=== PATIENT | female | born 1975 | race African-American/Black ===

== ENCOUNTER 2018-07-23 15:29 | Emergency (ER) | payer OTHER ==
--- NOTE | 2018-07-23 16:15 | ED ---
General Adult HPI - General Chief complaint: Back Pain/Injury Stated complaint: Abd pain Source: patient, RN notes reviewed Mode of arrival: ambulatory Limitations: no limitations - History of Present Illness Initial comments: Chief complaint and history of present illness is a 41-year-old female complaint of right lower rib cage area pain. Ongoing for 3 or 4 days. She can' t remember any specific injury. Though she does states she's exercising more lately. No coughing. Denies any fever. No associated sweats. It is reproducible with palpation over the area as well as twisting turning and bending. She has not taken any pain medication for it to-date. - Related Data Home Medications Medication Instructions Recorded Confirmed Ferrous Sulfate [Iron (65 MG 325 mg PO DAILY 12/17/15 07/23/18 Elemental)] Varenicline Tartrate [Chantix] 1 tab PO DAILY 12/17/15 07/23/18 Allergies Allergy/AdvReac Type Severity Reaction Status Date / Time latex Allergy Rash/Hives Verified 07/23/18 15:57 Review of Systems ROS Statement: Those systems with pertinent positive or pertinent negative responses have been documented in the HPI. Review of systems no complaint of head ache no backache currently though she does have chronic back problems. Denies shortness of breath. No change in appetite. No GI/ complaints or problems. No rashes. All systems were reviewed. Past medical problems anemia for which she takes iron tablets. Surgeries none. Family history an aunt and sister had lung cancer. Patient has ALLERGIES to latex. She quit smoking one year ago. She denies alcohol use. ROS Other: All systems not noted in ROS Statement are negative. Past Medical History Past Medical History: No Reported History History of Any Multi-Drug Resistant Organisms: None Reported Past Surgical History: No Surgical Hx Reported Past Anesthesia/Blood Transfusion Reactions: No Reported Reaction Past Psychological History: No Psychological Hx Reported Smoking Status: Current every day smoker - Past Family History Mother Family Medical History: Asthma, Diabetes Mellitus, Hypertension General Exam - General Exam Comments Initial Comments: General: The patient is awake and alert, here with a complaint of discomfort for 3 days to her right lower lateral rib cage area. Vital signs shows temperature 97.9 pulse 87 respiratory rate 16 pulse ox 99% room air blood pressure 130/83 Eye: Pupils are equal, round and reactive to light, extra-ocular movements are intact ; there is normal conjunctiva bilaterally. No signs of icterus. Ears, nose, mouth and throat: There are moist mucous membranes and no oral lesions. Neck: The neck is supple, there is no tenderness, no anterior cervical lymphadenopathy , thyroid not enlarged. No difficulty swallowing. Cardiovascular: There is a regular rate and rhythm. No murmur, rub or gallop is appreciated. Respiratory: Lungs are clear to auscultation, respirations are non-labored, breath sounds are equal. No wheezes, stridor, rales, or rhonchi. Patient points of discomfort to the lower rib cage on the right side along the mid axillary line. Pain increases with deep palpation twisting turning bending but not with breathing. No rash noted. Early shingles was discussed. Gastrointestinal: Soft, non-distended, non-tender abdomen without masses or organomegaly noted. There is no rebound or guarding present. No CVA tenderness. Bowel sounds are unremarkable. Back: There is no tenderness to palpation in the midline. There is no obvious deformity. No rashes noted. Musculoskeletal: Normal ROM, no tenderness, There is no pedal edema. There is no calf tenderness or swelling. Sensation intact. Neurological: No complaint of any dizziness no neuro deficits noted. Skin: Skin is warm and dry and no rashes or lesions are noted. Early shingles discussed. Psychiatric: Cooperative, Limitations: no limitations Course Vital Signs 07/23/18 15:33 Temperature 97.9 F Pulse Rate 87 Respiratory 16 Rate Blood Pressure 130/83 O2 Sat by Pulse 99 Oximetry Medical Decision Making - Medical Decision Making Medical decision making; is a 43-year-old female complaint of discomfort to her right lower lateral rib cage area. Reproducible. She does states she's had increased physical activity been doing exercising. Remember any specific reason for the pain. Patient had a chest x-ray and urinalysis done. She has no other complaints. The patient's urine was done and lab reports no signs of infection. X-ray of the chest was done reviewed radiologist his impression is heart and mediastinum are normal. Lungs are clear. Diaphragm is normal. Bony thorax appears normal. Impression normal chest. As read by Dr. Linares. The patient does have chronic back pain and uses Motrin with good results. We discussed nondisplaced rib fractures, musculoskeletal strain, costochondritis. Patient does not have fever. Pains radiate reproducible. The plan the patient will be advised to continue with her Motrin at home follow up with family doctor. Splint the area when she coughs or takes a deep breath. She develops a fever and return emergency room or see her family doctor. - Lab Data Lab Results 07/23/18 Range/Units 16:15 Urine Color Colorless Urine Appearance Clear (Clear) Urine pH 6.5 (5.0-8.0) Ur Specific [place] 1.002 (1.001-1.035) Urine Protein Negative (Negative) Urine Glucose (UA) Negative (Negative) Urine Ketones Negative (Negative) Urine Blood Negative (Negative) Urine Nitrite Negative (Negative) Urine Bilirubin Negative (Negative) Urine Urobilinogen <2.0 (<2.0) mg/dL Ur Leukocyte Esterase Negative (Negative) Disposition Clinical Impression: Costochondritis, acute Disposition: HOME SELF-CARE Condition: Fair Instructions: Costochondritis (ED) Additional Instructions: Which her hand or pillow over the area of discomfort we did deep breath or cough or twist or turn. Use your ibuprofen which you have at home. Follow-up family doctor. Return emergency room if he have any acute changes. Watch for rash. If he see a rash to notify your family doctor. Is patient prescribed a controlled substance at d/c from ED?: No Referrals: Star Tai MD [Primary Care Provider] - 1-2 days Time of Disposition: 17:22
[2018-07-23 16:32] LABS: Appearance,Urine Clear (Clear); Bilirubin,Urine Negative (Negative); Blood,Urine Negative (Negative); Color,Urine Colorless; Glucose,Urine (UA) Negative (Negative); Ketones,Urine Negative (Negative); Leukocyte Esterase,Urine Negative (Negative); Nitrite,Urine Negative (Negative); PH, Urine 6.5 (5.0-8.0); Protein,Urine Negative (Negative); Specific Gravity,Urine 1.002 (1.001-1.035); Urobilinogen,Urine <2.0 mg/dL (<2.0)
--- NOTE | 2018-07-23 16:54 | XR ---
EXAMINATION TYPE: XR chest 2V DATE OF EXAM: 07/23/2018 COMPARISON: None HISTORY: Rib pain TECHNIQUE: Frontal and lateral views of the chest are obtained. FINDINGS: Heart and mediastinum are normal. Lungs are clear. Diaphragm is normal. Bony thorax appear s normal. IMPRESSION: Normal chest.
[2018-07-23 17:33] VITALS: BP 113/80; PULSE 88; RESP 18; TEMP 98.2
== END 2018-07-23 17:33 | disposition home or self-care (01) ==
LOC: EC 15:29
DX: M94.0 Chondrocostal junction syndrome [Tietze] (principal); M54.9 Dorsalgia, unspecified; R10.9 Unspecified abdominal pain; F17.200 Nicotine dependence, unspecified, uncomplicated; Z79.899 Other long term (current) drug therapy; Z91.040 Latex allergy status
CPT/HCPCS: 71046; 81003; 99283

== ENCOUNTER 2018-10-09 13:49 | Emergency (ER) | payer OTHER ==
[2018-10-09 13:56] VITALS: RESP 18; TEMP 99.8
[2018-10-09] MEDS ORDERED: HYDROcodone/APAP 7.5-325MG 1 EACH TAB PO ONE (14:08)
[2018-10-09] MEDS ORDERED: SODIUM CHLORIDE 0.9% 1,000 ML IV STA (14:08)
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
--- NOTE | 2018-10-09 14:51 | XR ---
EXAMINATION TYPE: XR ankle complete RT DATE OF EXAM: 10/09/2018 Right ankle 3 views. History pain. Comparison none. FINDINGS: Ankle mortise is anatomic. I see no fracture nor dislocation. Joint spaces are normal. There are no p athologic calcifications. IMPRESSION: Negative right ankle exam.
[2018-10-09 15:06] LABS: Basophils % (A) 1 %; Eosinophils # (A) 0.2 k/uL (0-0.7); Eosinophils % (A) 5 %; HCT 38.8 % (34.0-46.0); HGB 12.6 gm/dL (11.4-16.0); Lymphocytes # (A) 1.4 k/uL (1.0-4.8); Lymphocytes % (A) 40 %; MCHC 32.6 g/dL (31.0-37.0); MCV 95.2 fL (80.0-100.0); Mean Platelet Volume 7.2; Monocytes # (A) 0.3 k/uL (0-1.0); Monocytes % (A) 9 %; Neutrophils # (A) 1.4 k/uL (1.3-7.7); Neutrophils % (A) 42 %; Platelet Count 230 k/uL (150-450); RBC 4.07 m/uL (3.80-5.40); RDW 13.7 % (11.5-15.5); WBC 3.4 k/uL (3.8-10.6)
[2018-10-09 15:12] VITALS: BP 121/86; PULSE 75
[2018-10-09 15:16] LABS: ALT 33 U/L (9-52); AST 34 U/L (14-36); Alkaline Phosphatase 67 U/L (38-126); Anion Gap 8 mmol/L; Blood Urea Nitrogen 11 mg/dL (7-17); Calcium 9.4 mg/dL (8.4-10.2); Carbon Dioxide 24 mmol/L (22-30); Chloride 106 mmol/L (98-107); Glucose 104 mg/dL (74-99); Potassium 4.4 mmol/L (3.5-5.1); Sodium 138 mmol/L (137-145); Total Bilirubin 0.8 mg/dL (0.2-1.3)
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
[2018-10-09 15:45] LABS: Appearance,Urine Clear (Clear); Bilirubin,Urine Negative (Negative); Blood,Urine Negative (Negative); Color,Urine Colorless; Glucose,Urine (UA) Negative (Negative); Ketones,Urine Negative (Negative); Leukocyte Esterase,Urine Negative (Negative); Nitrite,Urine Negative (Negative); Protein,Urine Negative (Negative); Specific Gravity,Urine 1.015 (1.001-1.035); Urobilinogen,Urine <2.0 mg/dL (<2.0)
== END 2018-10-09 16:01 | disposition home or self-care (01) ==
LOC: EC 13:49
DX: S93.401A Sprain of unspecified ligament of right ankle, initial encounter (principal); R10.9 Unspecified abdominal pain; F17.200 Nicotine dependence, unspecified, uncomplicated; Z79.899 Other long term (current) drug therapy; Z91.040 Latex allergy status; V03.99XA Pedestrian with other conveyance injured in collision with car, pick-up truck or van, unspecified whether traffic or nontraffic accident, initial encounter; Y93.01 Activity, walking, marching and hiking; Y92.481 Parking lot as the place of occurrence of the external cause; Z98.51 Tubal ligation status
CPT/HCPCS: 36415; 80053; 85025; 81003; 73610; 71260; 74177; 99285; 96360; Q9967

== ENCOUNTER → 2023-01-07 | Outpatient (CLI) | payer OTHER ==
--- NOTE | 2023-01-08 08:37 | MM ---
Reason for Exam: Screening (asymptomatic). Baseline mammogram. Patient History: Menarche at age 14. First Full-Term at age 16. Last menstrual period: 12/21/2022 Risk Values: [place] 5 year model risk: 0.9%. NCI Lifetime model risk: 9.2%. Prior Study Comparison: Patient's first Mammogram. Tissue Density: The breast tissue is heterogeneously dense. This may lower the sensitivity of mammography. Findings: Analyzed By CAD. There is no suspicious group of microcalcifications or new suspicious mass in either breast. Overall Assessment: Negative, BI-RAD 1 Management: Screening Mammogram of both breasts in 1 year. . Patient should continue monthly self-breast exams. A clinical breast exam by your physician is recommended on an annual basis. This exam should not preclude additional follow-up of suspicious palpable abnormalities. Note on Juana scores and lifetime risk: 1. A Juana score greater than 3% is considered moderate risk. If this is the case, consider specialist referral to assess eligibility for a risk reducing agent. 2. If overall lifetime risk for the development of breast cancer is 20% or higher, the patient may qualify for future screening with alternating mammogram and breast MRI. Electronically signed and approved by: Suleman Tompkins M.D. Radiologis
== END | disposition home or self-care (01) ==
LOC: RADMAMWWP 15:51
PROVIDERS: ATTEND Family Medicine
DX: Z12.31 Encounter for screening mammogram for malignant neoplasm of breast (principal)
CPT/HCPCS: 77067

== ENCOUNTER 2023-06-26 14:59 | Emergency (ER) | payer OTHER ==
[2023-06-26 15:21] VITALS: TEMP 98.4
[2023-06-26] MEDS ORDERED: ONDANSETRON 4 MG/2 ML VIAL IVP STA (16:02)
[2023-06-26] MEDS ORDERED: SODIUM CHLORIDE 0.9% 1,000 ML IV STA (16:02)
[2023-06-26] MEDS ORDERED: KETOROLAC 15 MG/ML 1 ML VIAL IVP STA (16:02)
[2023-06-26] MEDS ORDERED: PANTOPRAZOLE 40 MG/10 ML VIAL IVP STA (16:02)
[2023-06-26] MEDS ORDERED: MAG HYDROX/AL HYDROX/SIMETH 30 ML, HYOSCYAMINE ELIXIR 10 ML, LIDOCAINE VISCOUS 2% 10 ML PO STA ×3 (16:03)
[2023-06-26 16:45] LABS: Basophils % (A) 1 %; Eosinophils # (A) 0.1 k/uL (0-0.7); Eosinophils % (A) 3 %; HCT 37.4 % (34.0-46.0); HGB 12.1 gm/dL (11.4-16.0); Lymphocytes # (A) 1.2 k/uL (1.0-4.8); Lymphocytes % (A) 35 %; MCH 30.9 pg (25.0-35.0); MCHC 32.2 g/dL (31.0-37.0); MCV 95.9 fL (80.0-100.0); Mean Platelet Volume 8.4; Monocytes # (A) 0.3 k/uL (0-1.0); Monocytes % (A) 9 %; Neutrophils # (A) 1.7 k/uL (1.3-7.7); Neutrophils % (A) 50 %; Platelet Count 234 k/uL (150-450); RBC 3.91 m/uL (3.80-5.40); RDW 13.5 % (11.5-15.5); WBC 3.4 k/uL (3.8-10.6)
[2023-06-26 16:48] LABS: Appearance,Urine Clear (Clear); Bilirubin,Urine Negative (Negative); Blood,Urine Moderate (Negative); Color,Urine Colorless; Glucose,Urine (UA) Negative (Negative); Ketones,Urine Negative (Negative); Leukocyte Esterase,Urine Negative (Negative); Nitrite,Urine Negative (Negative); Protein,Urine Negative (Negative); RBC,Urine 6 /hpf (0-5); Specific Gravity,Urine 1.007 (1.001-1.035); Squamous Epithelial Cell,Urine <1 /hpf (0-4); Urobilinogen,Urine <2.0 mg/dL (<2.0); WBC,Urine 2 /hpf (0-5)
[2023-06-26 16:54] LABS: Partial Thromboplastin Time 27.3 sec (22.0-30.0); Prothrombin Time 10.8 sec (10.0-12.5)
[2023-06-26 17:02] LABS: ALT 17 U/L (4-34); AST 21 U/L (14-36); African American GFR (CKD) >90 (>60 ml/min/1.73 sqM); Albumin 3.6 g/dL (3.5-5.0); Alkaline Phosphatase 76 U/L (38-126); Amylase 63 U/L (30-110); Anion Gap 7 mmol/L; Blood Urea Nitrogen 10 mg/dL (7-17); Calcium 8.9 mg/dL (8.4-10.2); Carbon Dioxide 25 mmol/L (22-30); Chloride 105 mmol/L (98-107); Glucose 87 mg/dL (74-99); Lipase 126 U/L (23-300); Non-African American GFR(CKD) >90 (>60 ml/min/1.73 sqM); Potassium 4.2 mmol/L (3.5-5.1); Sodium 137 mmol/L (137-145); Total Bilirubin 0.5 mg/dL (0.2-1.3); Total Protein 6.9 g/dL (6.3-8.2)
--- NOTE | 2023-06-26 17:21 | ED ---
General Adult HPI - General Chief complaint: Nausea/Vomiting/Diarrhea Stated complaint: abd pain Time Seen by Provider: 06/26/23 15:50 Source: patient, RN notes reviewed, old records reviewed Mode of arrival: ambulatory Limitations: no limitations - History of Present Illness Initial comments: Patient is a 48-year-old female presents emergency Department complaining of epigastric and right upper quadrant abdominal pain since yesterday. This evening nausea as well as a few episodes of nonbilious emesis. He is improved today but is still having symptoms which is why she percents. States she started feeling bad after she drank coffee with suspected bad creamer. He was concerned that explained. Patient does have a history of hypertension but is poorly compliant with medications. His history of tubal ligation but no other abdominal surgeries. Denies any diarrhea, constipation. Denies any chest pain or shortness breath. No cardiac winces time. Presents for further evaluation of this time. - Related Data Home Medications Medication Instructions Recorded Confirmed Ferrous Sulfate [Iron (65 MG 325 mg PO DAILY 12/17/15 07/23/18 Elemental)] Varenicline Tartrate [Chantix] 1 tab PO DAILY 12/17/15 07/23/18 Previous Rx's Medication Instructions Recorded Ibuprofen [Motrin] 600 mg PO Q6HR PRN #40 day 10/09/18 Fluconazole [Diflucan] 150 mg PO DAILY #5 tab 09/25/22 Nystatin 100,000Unit/gm Cream 1 applic TOPICAL TID #45 gm 09/25/22 [Mycostatin Cream] metroNIDAZOLE 500 mg PO BID 7 Days #14 tablet 09/25/22 Famotidine [Pepcid] 20 mg PO DAILY 7 Days #7 tablet 06/26/23 Allergies Allergy/AdvReac Type Severity Reaction Status Date / Time latex Allergy Rash/Hives Verified 06/26/23 15:12 Review of Systems ROS Statement: Those systems with pertinent positive or pertinent negative responses have been documented in the HPI. Review of Systems: CONST: Denies fever EYES: Denies blurry vision ENT: Denies nasal congestion C/V: Denies Chest pain RESP: Denies shortness of breath GI: Endorses abdominal pain : Denies dysuria SKIN: Denies rash. MSK: Denies joint pain. NEURO: Denies headache ROS Other: All systems not noted in ROS Statement are negative. Past Medical History Past Medical History: No Reported History History of Any Multi-Drug Resistant Organisms: None Reported Past Surgical History: No Surgical Hx Reported, Tubal Ligation Past Anesthesia/Blood Transfusion Reactions: No Reported Reaction Past Psychological History: No Psychological Hx Reported Smoking Status: Current every day smoker Past Alcohol Use History: Occasional Past Drug Use History: None Reported - Past Family History Mother Family Medical History: Asthma, Diabetes Mellitus, Hypertension General Exam - General Exam Comments Initial Comments: General: Appears in no acute distress. HEAD: Normal with no signs of head trauma. EYES: PERRLA, EOMI, conjunctiva normal, no discharge. ENT: Hearing grossly intact, normal oropharynx. RESPIRATORY: Clear breath sounds bilaterally. No wheezes, rales, or rhonchi. C/V: Regular rate and rhythm. S1 and S2 auscultated, no edema, peripheral pulses 2+ and intact throughout ABD: Abdomen soft, nondistended. Mild tenderness palpation in the right upper q uadrant and epigastric region. No guarding. No peritoneal signs. EXT: Normal range of motion, no obvious deformity SKIN: No rashes or lesions observed on exposed skin. NEURO: Alert and oriented 4. Limitations: no limitations Course Vital Signs 06/26/23 06/26/23 15:10 18:42 Temperature 98.4 F Pulse Rate 69 64 Respiratory 20 18 Rate Blood Pressure 141/102 145/98 O2 Sat by Pulse 100 100 Oximetry Medical Decision Making - Medical Decision Making Was pt. sent in by a medical professional or institution (, PA, GROUP MANAGER, urgent care, hospital, or usp...) When possible be specific @ -No Did you speak to anyone other than the patient for history (EMS, parent, family, police, friend...)? What history was obtained from this source @ -No Did you review nursing and triage notes (agree or disagree)? Why? @ -I reviewed and agree with nursing and triage notes Were old charts reviewed (outside hosp., previous admission, EMS record, old EKG, old radiological studies, urgent care reports/EKG's, usp records)? Report findings @ -No old charts were reviewed Differential Diagnosis (chest pain, altered mental status, abdominal pain women, abdominal pain men, vaginal bleeding, weakness, fever, dyspnea, syncope, headache, dizziness, GI bleed, back pain, seizure, CVA, palpatations, mental health, musculoskeletal)? @ -Differential Abdominal Pain Women: Appendicitis, Cholecystitis, diverticulosis, ischemic bowel, pancreatitis, hepatitis, UTI, gastroenteritis, AAA, incarcerated hernia, bowel obstruction, constipation, inflammatory bowel, hepatitis, peptic ulcer disease, splenic infarction, perforated viscus, vulvitis, ovarian torsion, PID, kidney stone, placenta abruption, this is not meant to be an all-inclusive list EKG interpreted by me (3pts min.). @ -As above X-rays interpreted by me (1pt min.). @ -None done CT interpreted by me (1pt min.). @ -None done U/S interpreted by me (1pt. min.). @ -Ultrasound reveals cholelithiasis without any obvious findings to suggest cholecystitis. Radiology states that this could be early cholecystitis as there are no findings of that at this time. No gallbladder wall thickening. No CBD dilation. No pericholecystic fluid. No sonographic Vera sign. What testing was considered but not performed or refused? (CT, X-rays, U/S, labs)? Why? @ -None What meds were considered but not given or refused? Why? @ -None Did you discuss the management of the patient with other professionals (professionals i.e. , PA, GROUP MANAGER, lab, RT, psych nurse, social scientist, leasing specialist, teacher, chief contract officer, mattress spring encaser)? Give summary @ -No Was smoking cessation discussed for >3mins.? @ -No Was critical care preformed (if so, how long)? @ -No Were there social determinants of health that impacted care today? How? (Homelessness, low income, unemployed, alcoholism, drug addiction, transportation, low edu. Level, literacy, decrease access to med. care, skilled nursing, rehab)? @ -No Was there de-escalation of care discussed even if they declined (Discuss DNR or withdrawal of care, Hospice)? DNR status @ -No What co-morbidities impacted this encounter? (DM, HTN, Smoking, COPD, CAD, Cancer, CVA, ARF, Chemo, Hep., AIDS, mental health diagnosis, sleep apnea, morbid obesity)? @ -None Was patient admitted / discharged? Hospital course, mention meds given and route, prescriptions, significant lab abnormalities, going to OR and other pertinent info. @ -Based on the patient's presentation and physical exam, I'm concerned for intra-abdominal process for the patient's current symptoms. Hepatobiliary etiologies I'm listed in the that the symptoms as well as area of pain. We will obtain abdominal laboratory studies as well as a gallbladder ultrasound. Screen EKG will also be obtained. Patient was in agreement this plan. She will be empirically treated with IV fluids, Toradol, Zofran, Protonix as well as a GI cocktail. Vital signs are within acceptable limits. EKG shows no signs of acute ischemic process.Ultrasound reveals no evidence of cholecystitis. Patient does have cholelithiasis. Patient's laboratory studies are all within acceptable limits including a negative Covid. On reevaluation, symptoms have resolved. She is able to tolerate oral intake. Discussed results. Likely experiencing biliary colic. She expresses understanding that she does have a gallstone. Strict return precautions discussed but she'll be discharged home at this time. She was in agreement this plan. Discussed proper diet. I will provide the patient with a prescription for Pepcid, ODT Zofran. I instructed the patient to follow up with their PCP in the next 1-3 days. I explained that the patient should return to the emergency department if they experience any worsening symptoms. Strict return precautions were discussed with the patient. The patient expressed understanding of these instructions. I answered all questions that the patient had. The patient was discharged home in good condition with their prescriptions and follow up information. Undiagnosed new problem with uncertain prognosis? @ -No Drug Therapy requiring intensive monitoring for toxicity (Heparin, Nitro, Insulin, Cardizem)? @ -No Were any procedures done? @ -No Diagnosis/symptom? @ -Cholelithiasis, biliary colic Acute, or Chronic, or Acute on Chronic? @ -Acute Uncomplicated (without systemic symptoms) or Complicated (systemic symptoms)? @ -Complicated Side effects of treatment? @ -none Exacerbation, Progression, or Severe Exacerbation] @ -no Poses a threat to life or bodily function? @ -Unlikely - Lab Data Result diagrams: 06/26/23 16:13 06/26/23 16:13 Lab Results 06/26/23 06/26/23 06/26/23 Range/Units 16:13 16:13 16:13 WBC 3.4 L (3.8-10.6) k/uL RBC 3.91 (3.80-5.40) m/uL Hgb 12.1 (11.4-16.0) gm/dL Hct 37.4 (34.0-46.0) % MCV 95.9 (80.0-100.0) fL MCH 30.9 (25.0-35.0) pg MCHC 32.2 (31.0-37.0) g/dL RDW 13.5 (11.5-15.5) % Plt Count 234 (150-450) k/uL MPV 8.4 Neutrophils % 50 % Lymphocytes % 35 % Monocytes % 9 % Eosinophils % 3 % Basophils % 1 % Neutrophils # 1.7 (1.3-7.7) k/uL Lymphocytes # 1.2 (1.0-4.8) k/uL Monocytes # 0.3 (0-1.0) k/uL Eosinophils # 0.1 (0-0.7) k/uL Basophils # 0.0 (0-0.2) k/uL PT 10.8 (10.0-12.5) sec INR 1.0 (<1.2) APTT 27.3 (22.0-30.0) sec Sodium (137-145) mmol/L Potassium (3.5-5.1) mmol/L Chloride (98-107) mmol/L Carbon Dioxide (22-30) mmol/L Anion Gap mmol/L BUN (7-17) mg/dL Creatinine (0.52-1.04) mg/dL Est GFR (CKD-EPI)AfAm (>60 ml/min/1.73 sqM) Est GFR (CKD-EPI)NonAf (>60 ml/min/1.73 sqM) Glucose (74-99) mg/dL Plasma Lactic Acid Chris (0.7-2.0) mmol/L Calcium (8.4-10.2) mg/dL Total Bilirubin (0.2-1.3) mg/dL AST (14-36) U/L ALT (4-34) U/L Alkaline Phosphatase (38-126) U/L Total Protein (6.3-8.2) g/dL Albumin (3.5-5.0) g/dL Amylase (30-110) U/L Lipase (23-300) U/L HCG, Qual Urine Color Colorless Urine Appearance Clear (Clear) Urine pH 7.0 (5.0-8.0) Ur Specific [place] 1.007 (1.001-1.035) Urine Protein Negative (Negative) Urine Glucose (UA) Negative (Negative) Urine Ketones Negative (Negative) Urine Blood Moderate H (Negative) Urine Nitrite Negative (Negative) Urine Bilirubin Negative (Negative) Urine Urobilinogen <2.0 (<2.0) mg/dL Ur Leukocyte Esterase Negative (Negative) Urine RBC 6 H (0-5) /hpf Urine WBC 2 (0-5) /hpf Ur Squamous Epith Cells <1 (0-4) /hpf SARS-CoV-2 (PCR) (Not Detectd) 06/26/23 06/26/23 06/26/23 Range/Units 16:13 16:13 17:24 WBC (3.8-10.6) k/uL RBC (3.80-5.40) m/uL Hgb (11.4-16.0) gm/dL Hct (34.0-46.0) % MCV (80.0-100.0) fL MCH (25.0-35.0) pg MCHC (31.0-37.0) g/dL RDW (11.5-15.5) % Plt Count (150-450) k/uL MPV Neutrophils % % Lymphocytes % % Monocytes % % Eosinophils % % Basophils % % Neutrophils # (1.3-7.7) k/uL Lymphocytes # (1.0-4.8) k/uL Monocytes # (0-1.0) k/uL Eosinophils # (0-0.7) k/uL Basophils # (0-0.2) k/uL PT (10.0-12.5) sec INR (<1.2) APTT (22.0-30.0) sec Sodium 137 (137-145) mmol/L Potassium 4.2 (3.5-5.1) mmol/L Chloride 105 (98-107) mmol/L Carbon Dioxide 25 (22-30) mmol/L Anion Gap 7 mmol/L BUN 10 (7-17) mg/dL Creatinine 0.76 (0.52-1.04) mg/dL Est GFR (CKD-EPI)AfAm >90 (>60 ml/min/1.73 sqM) Est GFR (CKD-EPI)NonAf >90 (>60 ml/min/1.73 sqM) Glucose 87 (74-99) mg/dL Plasma Lactic Acid Chris 0.7 (0.7-2.0) mmol/L Calcium 8.9 (8.4-10.2) mg/dL Total Bilirubin 0.5 (0.2-1.3) mg/dL AST 21 (14-36) U/L ALT 17 (4-34) U/L Alkaline Phosphatase 76 (38-126) U/L Total Protein 6.9 (6.3-8.2) g/dL Albumin 3.6 (3.5-5.0) g/dL Amylase 63 (30-110) U/L Lipase 126 (23-300) U/L HCG, Qual Not Detected Urine Color Urine Appearance (Clear) Urine pH (5.0-8.0) Ur Specific [place] (1.001-1.035) Urine Protein (Negative) Urine Glucose (UA) (Negative) Urine Ketones (Negative) Urine Blood (Negative) Urine Nitrite (Negative) Urine Bilirubin (Negative) Urine Urobilinogen (<2.0) mg/dL Ur Leukocyte Esterase (Negative) Urine RBC (0-5) /hpf Urine WBC (0-5) /hpf Ur Squamous Epith Cells (0-4) /hpf SARS-CoV-2 (PCR) Not Detected (Not Detectd) - EKG Data -: EKG Interpreted by Me EKG Comments: 12-lead Electrocardiogram Interpretation Note EKG was reviewed and interpreted by myself. 12-lead ECG performed at 1639 is interpreted by me as revealing sinus bradycardia with first-degree AV block at a rate of at 54 beats per minute. Left axis deviation. AR interval is 252 ms, QRS duration is 108 ms, QTc is 443 ms.. There were no ST or T wave abnormalit ies to suggest myocardial ischemia or injury. R wave progression across the precordium was satisfactory. By my interpretation this EKG is non-diagnostic for acute ischemia. Disposition Clinical Impression: Biliary colic, Cholelithiasis Disposition: HOME SELF-CARE Condition: Good Instructions (If sedation given, give patient instructions): Biliary Colic (ED) Prescriptions: Famotidine [Pepcid] 20 mg PO DAILY 7 Days #7 tablet Is patient prescribed a controlled substance at d/c from ED?: No Referrals: Star Tai MD [Primary Care Provider] - 1-2 days Time of Disposition: 18:25
[2023-06-26 17:29] LABS: HCG,Qualitative Serum Not Detected
--- NOTE | 2023-06-26 18:21 | US ---
EXAMINATION TYPE: US gallbladder DATE OF EXAM: 06/26/2023 COMPARISON: CLINICAL INDICATION: Female, 48 years old with history of RUQ abd pain; N/V, ruq pain TECHNIQUE: Multiple sonographic images of the right upper quadrant are obtained. FINDINGS: EXAM MEASUREMENTS: Liver Length: 19.1 cm Gallbladder Wall: 0.4 cm CBD: 0.4 cm Right Kidney: 10.3 x 4.5 x 4.6 cm Pancreas: wnl Liver: Appears enlarged in size. Gallbladder: Mild wall thickening, up to 4 mm. Multiple mobile echogenic foci seen in fundal region . Echogenic focus seen at GB neck and appeared to move a little when patient turned LLD. Gallbladder appears enlarged in size = 10.3 cm Evidence for sonographic Vera's sign: neg CBD: wnl Right Kidney: No hydronephrosis or masses seen IMPRESSION: 1. Cholelithiasis, with additional nonspecific findings which could potentially be seen with early a cute cholecystitis. Correlate and follow-up clinically. 2. No biliary ductal dilatation. 3. Mild hepatomegaly.
[2023-06-26] MEDS ORDERED: ONDANSETRON 4 MG ODT STARTER PACK 2 TAB BTL PO STA (18:36)
[2023-06-26 18:53] VITALS: BP 145/98; PULSE 64; RESP 18
== END 2023-06-26 18:44 | disposition home or self-care (01) ==
LOC: EC 14:59
DX: K80.70 Calculus of gallbladder and bile duct without cholecystitis without obstruction (principal); I44.0 Atrioventricular block, first degree; F17.200 Nicotine dependence, unspecified, uncomplicated; I10 Essential (primary) hypertension; Z91.040 Latex allergy status; Z20.822 Contact with and (suspected) exposure to COVID-19
CPT/HCPCS: 36415; 93005; 80053; 82150; 83605; 83690; 85025; 85610; 85730; 81001; 84703; 87635; 76705; 96374; 96375 ×2; 96361; 99284; J2405; J1885; S0119; C9113

== ENCOUNTER 2023-09-19 11:48 | Emergency (ER) | payer OTHER ==
[2023-09-19 12:10] VITALS: RESP 16
[2023-09-19] MEDS: ACETAMINOPHEN TAB 500 MG TAB PO STA (12:14)
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
[2023-09-19 12:18] LABS: Appearance,Urine Clear (Clear); Bilirubin,Urine Negative (Negative); Blood,Urine Negative (Negative); Color,Urine Colorless; Glucose,Urine (UA) Negative (Negative); Ketones,Urine Negative (Negative); Leukocyte Esterase,Urine Negative (Negative); Nitrite,Urine Negative (Negative); Protein,Urine Negative (Negative); Specific Gravity,Urine 1.007 (1.001-1.035); Urobilinogen,Urine <2.0 mg/dL (<2.0)
--- NOTE | 2023-09-19 12:52 | XR ---
Lumbar spine. HISTORY: Right flank pain. COMPARISON: None. TECHNIQUE: 3 views lumbar spine were obtained. FINDINGS: The lumbar vertebral segments are normal in height and alignment there is no fracture or subluxation. The disc spaces well-maintained in height with the exception of mild disc space narrowing at the L4-5 level indicating mild L4-5 degenerative disc disease. There is mild facet arthropathy at the L4-5 and L5-S1 levels. The visualized sacrum and SI joints nor mal. Impression: Mild degenerative changes in lower lumbar spine as described above. There is no acute fracture or mal alignment.
[2023-09-19] MEDS: CYCLOBENZAPRINE 10MG STARTER 3 TAB BTL PO STA (13:17)
[2023-09-19 13:39] VITALS: BP 137/81; PULSE 80; TEMP 98.1
== END 2023-09-19 13:30 | disposition home or self-care (01) ==
LOC: EC 11:48
DX: M62.830 Muscle spasm of back (principal); F17.200 Nicotine dependence, unspecified, uncomplicated; Z91.040 Latex allergy status; Z91.030 Bee allergy status; Z91.018 Allergy to other foods
CPT/HCPCS: 72100; 81003; 81025; 99283; 99406

== ENCOUNTER → 2024-01-10 | Outpatient (CLI) | payer OTHER ==
--- NOTE | 2024-01-11 21:02 | MM ---
Reason for Exam: Screening (asymptomatic). Last screening mammogram was performed 12 month(s) ago. Patient History: Menarche at age 14. First Full-Term at age 16. Perimenopausal. Risk Values: [place] 5 year model risk: 1.0%. NCI Lifetime model risk: 9.0%. Prior Study Comparison: 01/07/2023 Bilateral MG screening mammo w CAD, [facility]. Tissue Density: The breasts are heterogeneously dense, which may obscure small masses. Findings: Analyzed By CAD. 6 mm round nodule 4:00 position right breast middle depth not seen previously. Further evaluation recommended. Otherwise, no significant change. Overall Assessment: Incomplete: need additional imaging evaluation, BI-RAD 0 Management: Special View Mammogram of the right breast. Diagnostic Breast Ultrasound of the right breast. . [facility] will attempt to contact patient to return for supplemental views and ultrasound if indicated. Electronically signed and approved by: Eulogio Lafleur M.D. Radiologist
== END | disposition home or self-care (01) ==
LOC: RADMAMWWP 14:48
PROVIDERS: ATTEND Family Medicine
DX: Z12.31 Encounter for screening mammogram for malignant neoplasm of breast (principal)
CPT/HCPCS: 77063; 77067

== ENCOUNTER 2024-01-22 00:19 | Emergency (ER) | payer OTHER ==
[2024-01-22 00:32] VITALS: TEMP 97.9
[2024-01-22 01:20] LABS: ALT 20 U/L (4-34); AST 27 U/L (14-36); African American GFR (CKD) 68 (>60 ml/min/1.73 sqM); Alkaline Phosphatase 94 U/L (38-126); Anion Gap 5 mmol/L; Blood Urea Nitrogen 14 mg/dL (7-17); Calcium 8.8 mg/dL (8.4-10.2); Carbon Dioxide 25 mmol/L (22-30); Chloride 104 mmol/L (98-107); Glucose 93 mg/dL (74-99); Non-African American GFR(CKD) 59 (>60 ml/min/1.73 sqM); Potassium 3.3 mmol/L (3.5-5.1); Sodium 134 mmol/L (137-145); Total Bilirubin 0.5 mg/dL (0.2-1.3)
--- NOTE | 2024-01-22 01:34 | ED ---
Seizure HPI - General Chief Complaint: Seizure Stated Complaint: Seizure Time Seen by Provider: 01/22/24 00:33 Source: EMS Mode of arrival: EMS Limitations: altered mental status - History of Present Illness Initial Comments: This 48-year-old woman brought to have evaluation for suspected seizure. I took most of the history from the patient's son who states that they had been at home and had watched a movie together. The patient's son told her he was going to go to bed and then he noticed that she was having shaking activity and not responding to him. He called EMS who brought her here. She does not have history of seizures. No known head trauma. MD Complaint: possible seizure - Related Data Home Medications Medication Instructions Recorded Confirmed Chlorthalidone [Hygroton] 25 mg PO DAILY 02/08/24 02/08/24 Ergocalciferol (Vitamin D2) 1,250 mcg PO Q7D 02/08/24 02/08/24 [Drisdol (50,000 Iu)] HYDROcodone/APAP 5-325MG [Buna 1 tab PO DAILY 02/08/24 02/08/24 5-325] Ibuprofen [Motrin] 800 mg PO BID 02/08/24 02/08/24 Nystatin 100,000 Unit/gm Powd 1 applic TOPICAL BID 02/08/24 02/08/24 [Mycostatin Powder] Nystatin 100,000Unit/gm Cream 1 applic TOPICAL BID 02/08/24 02/08/24 [Mycostatin Cream] Semaglutide [Wegovy] 0.25 mg SQ BLOCK 02/08/24 02/08/24 amLODIPine [Norvasc] 10 mg PO DAILY 02/08/24 02/08/24 Previous Rx's Medication Instructions Recorded Cyclobenzaprine [Flexeril] 10 mg PO TID PRN #15 tab 09/19/23 levETIRAcetam [Keppra] 500 mg PO BID #60 tab 02/09/24 Allergies Allergy/AdvReac Type Severity Reaction Status Date / Time Beef Containing Products Allergy Nausea & Verified 02/08/24 13:01 [Beef] Vomiting latex Allergy Rash/Hives Verified 02/08/24 13:01 Pork/Porcine Containing Allergy Rash/Hives Verified 02/08/24 13:01 Products [Pork] Review of Systems ROS Statement: Those systems with pertinent positive or pertinent negative responses have been documented in the HPI. ROS Other: All systems not noted in ROS Statement are negative. Limitations: ROS unobtainable due to patients medical condition Past Medical History Past Medical History: No Reported History History of Any Multi-Drug Resistant Organisms: None Reported Past Surgical History: Tubal Ligation Past Anesthesia/Blood Transfusion Reactions: No Reported Reaction Past Psychological History: No Psychological Hx Reported Smoking Status: Current every day smoker Past Alcohol Use History: Occasional Past Drug Use History: None Reported - Past Family History Mother Family Medical History: Asthma, Diabetes Mellitus, Hypertension General Exam Limitations: altered mental status General appearance: obtunded Head exam: Present: atraumatic, normocephalic Eye exam: Present: normal appearance, PERRL, EOMI. Absent: scleral icterus, conjunctival injection ENT exam: Present: mucous membranes dry Neck exam: Present: normal inspection, full ROM. Absent: tenderness Respiratory exam: Present: normal lung sounds bilaterally. Absent: respiratory distress, wheezes, rales, rhonchi, stridor, accessory muscle use Cardiovascular Exam: Present: regular rate, normal rhythm, normal heart sounds. Absent: systolic murmur, diastolic murmur, rubs, gallop GI/Abdominal exam: Present: soft. Absent: distended, tenderness, guarding, rebound, rigid, mass Extremities exam: Present: normal inspection, normal capillary refill. Absent: pedal edema, calf tenderness Back exam: Present: normal inspection Neurological exam: Present: alert. Absent: motor sensory deficit Skin exam: Present: warm, dry, intact, normal color. Absent: rash Course Vital Signs 01/22/24 01/22/24 01/22/24 00:22 01:28 03:28 Temperature 97.9 F Pulse Rate 87 66 70 Respiratory 17 18 18 Rate Blood Pressure 98/67 134/83 135/89 O2 Sat by Pulse 100 99 99 Oximetry 01/22/24 01/22/24 05:28 07:49 Temperature 97.9 F Pulse Rate 86 86 Respiratory 18 16 Rate Blood Pressure 98/78 100/78 O2 Sat by Pulse 99 99 Oximetry Medical Decision Making - Medical Decision Making Was pt. sent in by a medical professional or institution (, PA, DIRECTOR AUTO, urgent care, hospital, or [facility]cc...) When possible be specific @ -[No] Did you speak to anyone other than the patient for history (EMS, parent, family, police, friend...)? What history was obtained from this source @ -[No] Did you review nursing and triage notes (agree or disagree)? Why? @ -[I reviewed and agree with nursing and triage notes] Were old charts reviewed (outside hosp., previous admission, EMS record, old EKG, old radiological studies, urgent care reports/EKG's, mcc records)? Report findings @ -[No old charts were reviewed] Differential Diagnosis (chest pain, altered mental status, abdominal pain women, abdominal pain men, vaginal bleeding, weakness, fever, dyspnea, syncope, headache, dizziness, GI bleed, back pain, seizure, CVA, palpatations, mental health, musculoskeletal)? @ -[Differential Seizure: Recurrent seizure disorder, febrile seizure, alcohol withdrawal, stimulants, meningitis, encephalitis, intercranial hemorrhage, intracranial tumor, stroke, eclampsia, thyrotoxicosis, hypocalcemia, hyponatremia, hypernatremia, hypomagnesemia, psychogenic, this is not meant to be an all-inclusive list. EKG interpreted by me (3pts min.). @ -[As above] X-rays interpreted by me (1pt min.). @ -[None done] CT interpreted by me (1pt min.). @ -[The patient had CT scan of the brain that I interpreted as negative for acute intracranial hemorrhage or bony trauma. U/S interpreted by me (1pt. min.). @ -[None done] What testing was considered but not performed or refused? (CT, X-rays, U/S, labs)? Why? @ -[None] What meds were considered but not given or refused? Why? @ -[None] Did you discuss the management of the patient with other professionals (professionals i.e. , PA, DIRECTOR AUTO, lab, RT, psych nurse, social media specialist, senior production manager, teacher, credit administration officer, top case assembler)? Give summary @ -[No] Was smoking cessation discussed for >3mins.? @ -[No] Was critical care preformed (if so, how long)? @ -[No] Were there social determinants of health that impacted care today? How? (Homele ssness, low income, unemployed, alcoholism, drug addiction, transportation, low edu. Level, literacy, decrease access to med. care, [facility], rehab)? @ -[No] Was there de-escalation of care discussed even if they declined (Discuss DNR or withdrawal of care, Hospice)? DNR status @ -[No] What co-morbidities impacted this encounter? (DM, HTN, Smoking, COPD, CAD, Cancer, CVA, ARF, Chemo, Hep., AIDS, mental health diagnosis, sleep apnea, morbid obesity)? @ -[None] Was patient admitted / discharged? Hospital course, mention meds given and route, prescriptions, significant lab abnormalities, going to OR and other pertinent info. @ -[Patient is 48-year-old woman here with possible seizure. She sounds like she did have generalized tonic-clonic seizure. The patient has returned to baseline. The workup unremarkable. Discussed with patient the need to follow with neurology to have any further workup. At this point stable for outpatient. Return parameters discussed Undiagnosed new problem with uncertain prognosis? @ -[No] Drug Therapy requiring intensive monitoring for toxicity (Heparin, Nitro, Insulin, Cardizem)? @ -[No] Were any procedures done? @ -[No] Diagnosis/symptom? @ -[Acute generalized tonic-clonic seizure Acute, or Chronic, or Acute on Chronic? @ -[Acute Uncomplicated (without systemic symptoms) or Complicated (systemic symptoms)? @ -[Uncomplicated Side effects of treatment? @ -[No] Exacerbation, Progression, or Severe Exacerbation? @ -[No] Poses a threat to life or bodily function? How? (Chest pain, [place], [place], pneumonia, PE, COPD, DKA, ARF, appy, cholecystitis, CVA, Diverticulitis, Homicidal, Suicidal, threat to staff... and all critical care pts) @ -[No] - Lab Data Result diagrams: 01/22/24 00:47 01/22/24 00:47 Lab Results 01/22/24 01/22/24 01/22/24 Range/Units 00:47 00:47 03:44 WBC 2.9 L (3.8-10.6) k/uL RBC 3.70 L (3.80-5.40) m/uL Hgb 11.4 (11.4-16.0) gm/dL Hct 34.4 (34.0-46.0) % MCV 92.9 (80.0-100.0) fL MCH 30.7 (25.0-35.0) pg MCHC 33.1 (31.0-37.0) g/dL RDW 14.1 (11.5-15.5) % Plt Count 229 (150-450) k/uL MPV 8.4 Neutrophils % (Manual) 37 % Band Neuts % (Manual) 1 % Lymphocytes % (Manual) 53 % Monocytes % (Manual) 5 % Eosinophils % (Manual) 4 % Neutrophils # (Manual) 1.10 L (1.3-7.7) k/uL Lymphocytes # (Manual) 1.54 (1.0-4.8) k/uL Monocytes # (Manual) 0.15 (0-1.0) k/uL Eosinophils # (Manual) 0.12 (0-0.7) k/uL Nucleated RBCs 0 (0-0) /100 WBC Manual Slide Review Performed Ovalocytes Present Crenated Cell Present Sodium 134 L (137-145) mmol/L Potassium 3.3 L (3.5-5.1) mmol/L Chloride 104 (98-107) mmol/L Carbon Dioxide 25 (22-30) mmol/L Anion Gap 5 mmol/L BUN 14 (7-17) mg/dL Creatinine 1.12 H (0.52-1.04) mg/dL Est GFR (CKD-EPI)AfAm 68 (>60 ml/min/1.73 sqM) Est GFR (CKD-EPI)NonAf 59 (>60 ml/min/1.73 sqM) Glucose 93 (74-99) mg/dL Calcium 8.8 (8.4-10.2) mg/dL Magnesium 2.0 (1.6-2.3) mg/dL Total Bilirubin 0.5 (0.2-1.3) mg/dL AST 27 (14-36) U/L ALT 20 (4-34) U/L Alkaline Phosphatase 94 (38-126) U/L Total Protein 7.0 (6.3-8.2) g/dL Albumin 4.0 (3.5-5.0) g/dL Serum Alcohol <10 mg/dL - EKG Data -: EKG Interpreted by [facility] EKG shows normal: sinus rhythm, axis (Normal), intervals (Is a first-degree AV block.), QRS complexes (decreased QRS did. Possible pulmonary pattern . Left anterior fascicular block pattern) Rate: normal (Rate 79 bpm) Disposition Clinical Impression: Generalized seizure Disposition: HOME SELF-CARE Condition: Good Instructions (If sedation given, give patient instructions): Seizure/Epilepsy Discharge Instructions & Follow-Up, New-Onset Seizure in Adults (ED) Is patient prescribed a controlled substance at d/c from ED?: No Referrals: Star Tai MD [Primary Care Provider] - 1-2 days Sheri Montiel MD [REFERRING] - 1-2 days
[2024-01-22 01:40] LABS: HCT 34.4 % (34.0-46.0); HGB 11.4 gm/dL (11.4-16.0); MCH 30.7 pg (25.0-35.0); MCHC 33.1 g/dL (31.0-37.0); MCV 92.9 fL (80.0-100.0); Mean Platelet Volume 8.4; Platelet Count 229 k/uL (150-450); RDW 14.1 % (11.5-15.5); WBC 2.9 k/uL (3.8-10.6)
[2024-01-22 02:06] LABS: Band Neutrophils % 1 %; Eosinophils # (M) 0.12 k/uL (0-0.7); Lymphocytes # (M) 1.54 k/uL (1.0-4.8); Monocytes # (M) 0.15 k/uL (0-1.0); Neutrophils % (M) 37 %; Nucleated Red Blood Cells 0 /100 WBC (0-0); Total Cells Counted 100
[2024-01-22] MEDS: LORazepam 2 MG/ML INJ IV STA (02:07)
[2024-01-22 02:08] LABS: Crenated RBC Present; Ovalocytes Present
--- NOTE | 2024-01-22 03:26 | CT ---
EXAM: CT Head Without Intravenous Contrast CLINICAL HISTORY: ITS.REASON CT Reason: new seizure TECHNIQUE: Axial computed tomography images of the head/brain without intravenous contrast. CTDI is 49.2 mGy and DLP is 1095.4 mGy-cm. This CT exam was performed using one or more of the following dose reduction techniques: automated exposure control, adjustment of the mA and/or kV according to patient size, and/or use of iterative reconstruction technique. COMPARISON: No relevant prior studies available. FINDINGS: Brain: Unremarkable. No hemorrhage. No significant white matter disease. No edema. Reid-white matter differentiation maintained. Ventricles: Unremarkable. No hydrocephalus. Bones/joints: Unremarkable. No acute fracture. Soft tissues: Unremarkable. Sinuses: Unremarkable as visualized. Mastoid air cells: Unremarkable as visualized. No mastoid effusion. IMPRESSION: No acute intracranial process.
[2024-01-22] MEDS: POTASSIUM CHLORIDE ER 20 MEQ TAB.ER PO STA (07:44)
[2024-01-22 07:58] VITALS: PULSE 86
[2024-01-22 08:02] VITALS: BP 100/78; RESP 16
== END 2024-01-22 07:49 | disposition home or self-care (01) ==
LOC: EC 00:19
DX: G40.409 Other generalized epilepsy and epileptic syndromes, not intractable, without status epilepticus (principal); F17.200 Nicotine dependence, unspecified, uncomplicated; Z91.018 Allergy to other foods; Z91.040 Latex allergy status
CPT/HCPCS: 36415; 93005; 80053; 83735; 85025; 70450; 99285; 96374; G0480; J2060; 80320

== ENCOUNTER 2024-02-08 10:11 | Observation (INO) | payer OTHER ==
--- NOTE | 2024-02-08 10:25 | ED ---
General Adult HPI - General Chief complaint: Seizure Stated complaint: SEIZURE Time Seen by Provider: 02/08/24 10:25 Source: patient, RN notes reviewed Mode of arrival: ambulatory Limitations: no limitations - History of Present Illness Initial comments: This is a 48-year-old female presents emergency department chief complaint of a possible seizure. HPI is limited due to patient not responding verbally to questions on examination, history was obtained by patient's family in the room due to patient not responding to questions verbally. Family states that patient was found to have a shaking episode this morning with associated mouth clicking and head turning. Family states that she had an episode of a possible seizure in the middle of January where she was brought to the ER at this time as well and discharged home. - Related Data Home Medications Medication Instructions Recorded Confirmed Chlorthalidone [Hygroton] 25 mg PO DAILY 02/08/24 02/08/24 Ergocalciferol (Vitamin D2) 1,250 mcg PO Q7D 02/08/24 02/08/24 [Drisdol (50,000 Iu)] HYDROcodone/APAP 5-325MG [[place] 1 tab PO DAILY 02/08/24 02/08/24 5-325] Ibuprofen [Motrin] 800 mg PO BID 02/08/24 02/08/24 Nystatin 100,000 Unit/gm Powd 1 applic TOPICAL BID 02/08/24 02/08/24 [Mycostatin Powder] Nystatin 100,000Unit/gm Cream 1 applic TOPICAL BID 02/08/24 02/08/24 [Mycostatin Cream] Semaglutide [Wegovy] 0.25 mg SQ BLOCK 02/08/24 02/08/24 amLODIPine [Norvasc] 10 mg PO DAILY 02/08/24 02/08/24 Previous Rx's Medication Instructions Recorded Cyclobenzaprine [Flexeril] 10 mg PO TID PRN #15 tab 09/19/23 Allergies Allergy/AdvReac Type Severity Reaction Status Date / Time Beef Containing Products Allergy Nausea & Verified 02/08/24 13:01 [Beef] Vomiting latex Allergy Rash/Hives Verified 02/08/24 13:01 Pork/Porcine Containing Allergy Rash/Hives Verified 02/08/24 13:01 Products [Pork] Review of Systems ROS Statement: Those systems with pertinent positive or pertinent negative responses have been documented in the HPI. ROS Other: All systems not noted in ROS Statement are negative. Past Medical History Past Medical History: No Reported History History of Any Multi-Drug Resistant Organisms: None Reported Past Surgical History: Tubal Ligation Past Anesthesia/Blood Transfusion Reactions: No Reported Reaction Past Psychological History: No Psychological Hx Reported Smoking Status: Current every day smoker Past Alcohol Use History: Occasional Past Drug Use History: None Reported - Past Family History Mother Family Medical History: Asthma, Diabetes Mellitus, Hypertension General Exam Limitations: no limitations General appearance: alert Head exam: Present: atraumatic, normocephalic, normal inspection Eye exam: Present: normal appearance, PERRL, EOMI. Absent: scleral icterus, conjunctival injection, periorbital swelling ENT exam: Present: normal exam, mucous membranes moist Neck exam: Present: normal inspection. Absent: tenderness, meningismus, lymphadenopathy Respiratory exam: Present: normal lung sounds bilaterally. Absent: respiratory distress, wheezes, rales, rhonchi, stridor Cardiovascular Exam: Present: regular rate, normal rhythm, normal heart sounds. Absent: systolic murmur, diastolic murmur, rubs, gallop, clicks GI/Abdominal exam: Present: soft, normal bowel sounds. Absent: distended, tenderness, guarding, rebound, rigid Extremities exam: Present: normal inspection, full ROM, normal capillary refill. Absent: tenderness, pedal edema, joint swelling, calf tenderness Back exam: Present: normal inspection Neurological exam: Present: alert, altered, CN II-XII intact Expanded Cranial nerves: EOM's Intact: Normal Eye Response: (4) open spontaneously Motor Response: (6) obeys commands Verbal Response: (5) oriented Christopher Total: 15 Psychiatric exam: Present: normal affect, normal mood Skin exam: Present: warm, dry, intact, normal color. Absent: rash Course Vital Signs 02/08/24 02/08/24 02/08/24 10:13 11:15 11:30 Temperature 97.9 F Pulse Rate 90 82 80 Respiratory 18 14 19 Rate Blood Pressure 122/86 132/94 132/94 O2 Sat by Pulse 99 100 100 Oximetry 02/08/24 12:00 Temperature Pulse Rate 79 Respiratory 18 Rate Blood Pressure 137/97 O2 Sat by Pulse 100 Oximetry Medical Decision Making - Medical Decision Making Was pt. sent in by a medical professional or institution (Dr., PA, EX[employer] DENTAL ASSISTANT, urgent care, hospital, or fci...) When possible be specific @ -No Did you speak to anyone other than the patient for history (EMS, parent, family, police, friend...)? What history was obtained from this source @ -No Did you review nursing and triage notes (agree or disagree)? Why? @ -I reviewed and agree with nursing and triage notes Were old charts reviewed (outside hosp., previous admission, EMS record, old EKG, old radiological studies, urgent care reports/EKG's, fci records)? Report findings @ -Reviewed the patient's chart and open 01/22/2024 patient reported to the emergency department for suspected seizure. Differential Diagnosis (chest pain, altered mental status, abdominal pain women, abdominal pain men, vaginal bleeding, weakness, fever, dyspnea, syncope, headache, dizziness, GI bleed, back pain, seizure, CVA, palpatations, mental health, musculoskeletal)? @ -Differential seizure differential Seizure: Recurrent seizure disorder, febrile seizure, alcohol withdrawal, stimulants, meningitis, encephalitis, intercranial hemorrhage, intracranial tumor, stroke, eclampsia, thyrotoxicosis, hypocalcemia, hyponatremia, hypernatremia, hypomagnesemia, psychogenic, this is not meant to be an all-inclusive list. EKG interpreted by me (3pts min.). @ -completed at 1030, sinus rhythm with first-degree AV block, ventricular rate 88, TX interval 236, QTc 424. No acute signs of ischemia. X-rays interpreted by me (1pt min.). @ -None done CT interpreted by me (1pt min.). @ -CT brain without contrast no acute intracranial abnormality noted. U/S interpreted by me (1pt. min.). @ -None done What testing was considered but not performed or refused? (CT, X-rays, U/S, labs)? Why? @ -None What meds were considered but not given or refused? Why? @ -None Did you discuss the management of the patient with other professionals (professionals i.e. , PA, EXP[employer] DENTAL ASSISTANT, lab, RT, psych nurse, clinical social worker, braddisher, teacher, fiscal officer, case consultant)? Give summary @ -I spoke to Dr. Tai in regard to admission for the patient due to potential new onset acute seizures, patient will be admitted with consult to neurology. Was smoking cessation discussed for >3mins.? @ -no Was critical care preformed (if so, how long)? @ -No Were there social determinants of health that impacted care today? How? (Homelessness, low income, unemployed, alcoholism, drug addiction, transportation, low edu. Level, literacy, decrease access to med. care, care home, rehab)? @ -No Was there de-escalation of care discussed even if they declined (Discuss DNR or withdrawal of care, Hospice)? DNR status @ -No What co-morbidities impacted this encounter? (DM, HTN, Smoking, COPD, CAD, Cancer, CVA, ARF, Chemo, Hep., AIDS, mental health diagnosis, sleep apnea, morbid obesity)? @ -None Was patient admitted / discharged? Hospital course, mention meds given and route, prescriptions, significant lab abnormalities, going to OR and other pertinent info. @ -48-year-old female with possible seizure. On my evaluation of the patient initially she is mildly shaking and tongue clicking. Eyes are equal and reacti ve and patient responds to verbal commands however is not responding to questions verbally. She will be provided with a dose of Ativan and labs will be ordered in addition to EKG. EKG unremarkable. On reevaluation, patient is resting comfortably in bed and is responding to questions verbally. She is denying of headache, blurry vision, double vision, dysphagia, chest pain. States that she has right upper quadrant abdominal pain that has been ongoing and she follows with a GI specialist through [facility] for this. Patient will be prophylactically treated with a dose of IV Keppra and a CT of the brain will be ordered for further evaluation of potential seizure activity, she is in agreement with this plan. CT negative. Patient will be admitted to Dr. Tai with neurology on consult for further evaluation potential seizures. Undiagnosed new problem with uncertain prognosis? @ -No Drug Therapy requiring intensive monitoring for toxicity (Heparin, Nitro, Insulin, Cardizem)? @ -No Were any procedures done? @ -No Diagnosis/symptom? @ -new onset seizures Acute, or Chronic, or Acute on Chronic? @ -acute Uncomplicated (without systemic symptoms) or Complicated (systemic symptoms)? @ -uncomplicated Side effects of treatment? @ -No Exacerbation, Progression, or Severe Exacerbation? @ -No Poses a threat to life or bodily function? How? (Chest pain, [place], VA, pneumonia, PE, COPD, DKA, ARF, appy, cholecystitis, CVA, Diverticulitis, Homicidal, Suicidal, threat to staff... and all critical care pts) @ -possibly, untreated seizures/unmedicated can potentially lead to multiorgan system dysfunction - Lab Data Result diagrams: 02/08/24 10:36 02/08/24 10:36 Lab Results 02/08/24 02/08/24 02/08/24 Range/Units 10:36 10:36 10:36 WBC 3.2 L (3.8-10.6) k/uL RBC 3.86 (3.80-5.40) m/uL Hgb 11.8 (11.4-16.0) gm/dL Hct 37.0 (34.0-46.0) % MCV 95.9 (80.0-100.0) fL MCH 30.5 (25.0-35.0) pg MCHC 31.8 (31.0-37.0) g/dL RDW 14.0 (11.5-15.5) % Plt Count 256 (150-450) k/uL MPV 8.8 Neutrophils % 53 % Lymphocytes % 31 % Monocytes % 6 % Eosinophils % 7 % Basophils % 1 % Neutrophils # 1.7 (1.3-7.7) k/uL Lymphocytes # 1.0 (1.0-4.8) k/uL Monocytes # 0.2 (0-1.0) k/uL Eosinophils # 0.2 (0-0.7) k/uL Basophils # 0.0 (0-0.2) k/uL PT 11.0 (10.0-12.5) sec INR 1.0 (<1.2) APTT 26.8 (22.0-30.0) sec Sodium 141 (137-145) mmol/L Potassium 3.6 (3.5-5.1) mmol/L Chloride 112 H (98-107) mmol/L Carbon Dioxide 25 (22-30) mmol/L Anion Gap 4 mmol/L BUN 11 (7-17) mg/dL Creatinine 0.92 (0.52-1.04) mg/dL Est GFR (CKD-EPI)AfAm 86 (>60 ml/min/1.73 sqM) Est GFR (CKD-EPI)NonAf 75 (>60 ml/min/1.73 sqM) Glucose 92 (74-99) mg/dL POC Glucose (mg/dL) (70-110) mg/dL POC Glu Bar Attendant ID Calcium 9.0 (8.4-10.2) mg/dL Total Bilirubin 0.8 (0.2-1.3) mg/dL ALT 22 (4-34) U/L Alkaline Phosphatase 101 (38-126) U/L Total Protein 6.7 (6.3-8.2) g/dL Albumin 3.8 (3.5-5.0) g/dL Serum Alcohol <10 mg/dL 02/08/24 Range/Units 10:53 WBC (3.8-10.6) k/uL RBC (3.80-5.40) m/uL Hgb (11.4-16.0) gm/dL Hct (34.0-46.0) % MCV (80.0-100.0) fL MCH (25.0-35.0) pg MCHC (31.0-37.0) g/dL RDW (11.5-15.5) % Plt Count (150-450) k/uL MPV Neutrophils % % Lymphocytes % % Monocytes % % Eosinophils % % Basophils % % Neutrophils # (1.3-7.7) k/uL Lymphocytes # (1.0-4.8) k/uL Monocytes # (0-1.0) k/uL Eosinophils # (0-0.7) k/uL Basophils # (0-0.2) k/uL PT (10.0-12.5) sec INR (<1.2) APTT (22.0-30.0) sec Sodium (137-145) mmol/L Potassium (3.5-5.1) mmol/L Chloride (98-107) mmol/L Carbon Dioxide (22-30) mmol/L Anion Gap mmol/L BUN (7-17) mg/dL Creatinine (0.52-1.04) mg/dL Est GFR (CKD-EPI)AfAm (>60 ml/min/1.73 sqM) Est GFR (CKD-EPI)NonAf (>60 ml/min/1.73 sqM) Glucose (74-99) mg/dL POC Glucose (mg/dL) 93 (70-110) mg/dL POC Glu Bar Attendant ID Mechelle Templeton Calcium (8.4-10.2) mg/dL Total Bilirubin (0.2-1.3) mg/dL ALT (4-34) U/L Alkaline Phosphatase (38-126) U/L Total Protein (6.3-8.2) g/dL Albumin (3.5-5.0) g/dL Serum Alcohol mg/dL Disposition Clinical Impression: New onset seizure Disposition: ADMITTED IP TO THIS [facility] Instructions (If sedation given, give patient instructions): Seizure/Epilepsy Discharge Instructions & Follow-Up Is patient prescribed a controlled substance at d/c from ED?: No Referrals: Star Tai MD [Primary Care Provider] - 1-2 days Decision to Admit Reason: Admit from EC Decision Date: 02/08/24 Decision Time: 12:59
[2024-02-08] MEDS: LORazepam 2 MG/ML INJ IV STA (10:50)
[2024-02-08 10:55] LABS: Glucose,Whole Blood 93 mg/dL (70-110)
[2024-02-08 11:01] LABS: Basophils % (A) 1 %; Eosinophils # (A) 0.2 k/uL (0-0.7); Eosinophils % (A) 7 %; HGB 11.8 gm/dL (11.4-16.0); Lymphocytes % (A) 31 %; MCH 30.5 pg (25.0-35.0); MCHC 31.8 g/dL (31.0-37.0); MCV 95.9 fL (80.0-100.0); Mean Platelet Volume 8.8; Monocytes # (A) 0.2 k/uL (0-1.0); Monocytes % (A) 6 %; Neutrophils # (A) 1.7 k/uL (1.3-7.7); Neutrophils % (A) 53 %; Platelet Count 256 k/uL (150-450); RBC 3.86 m/uL (3.80-5.40); WBC 3.2 k/uL (3.8-10.6)
[2024-02-08 11:10] LABS: Partial Thromboplastin Time 26.8 sec (22.0-30.0)
[2024-02-08 11:13] LABS: ALT 22 U/L (4-34); African American GFR (CKD) 86 (>60 ml/min/1.73 sqM); Albumin 3.8 g/dL (3.5-5.0); Alcohol <10 mg/dL; Alkaline Phosphatase 101 U/L (38-126); Anion Gap 4 mmol/L; Blood Urea Nitrogen 11 mg/dL (7-17); Carbon Dioxide 25 mmol/L (22-30); Chloride 112 mmol/L (98-107); Glucose 92 mg/dL (74-99); Non-African American GFR(CKD) 75 (>60 ml/min/1.73 sqM); Potassium 3.6 mmol/L (3.5-5.1); Sodium 141 mmol/L (137-145); Total Bilirubin 0.8 mg/dL (0.2-1.3); Total Protein 6.7 g/dL (6.3-8.2)
[2024-02-08] MEDS: levETIRAcetam IV 500 MG/5 ML VIAL IVP STA (12:10)
--- NOTE | 2024-02-08 12:46 | CT ---
EXAMINATION TYPE: CT brain wo con CT DLP: 1008.4 mGycm, Automated exposure control for dose reduction was used. DATE OF EXAM: 02/08/2024 12:39 PM COMPARISON: 01/22/2024. CLINICAL INDICATION:Female, 48 years old with history of possible seizure, seizure TECHNIQUE: Brain: Axial CT images of the brain were obtained with coronal and sagittal reformats created and rev iewed. Contrast used: None. Oral contrast used: None. FINDINGS: Brain: Extra-axial spaces: No abnormal extra-axial fluid collections. Ventricular system: Within normal limits Cerebral parenchyma: No acute intraparenchymal hemorrhage or mass effect. The rios-white junction is well differentiated. Cerebellum: Unremarkable. Mass effect: No evidence of midline shift. Intracranial vasculature: unremarkable Soft tissues: Normal. Calvarium/osseous structures: No depressed skull fracture. Paranasal sinuses and mastoid air cells: Mild scattered paranasal sinus disease. Visualized orbits: Orbital contents are intact. IMPRESSION: No acute intracranial process.
[2024-02-08] MEDS ORDERED: NALOXONE 0.4 MG/ML 1 ML VIAL IV PRN (12:59)
[2024-02-08 17:15] LABS: AST 26 U/L (14-36)
[2024-02-08] MEDS: LORazepam 1 MG TAB PO PRN (17:20)
[2024-02-08] MEDS: levETIRAcetam 500 MG TAB PO SCH (21:08)
--- NOTE | 2024-02-09 06:28 | HP ---
HISTORY AND PHYSICAL CHIEF COMPLAINT: Syncope and grand mal seizure. HISTORY OF PRESENT ILLNESS: This is another admission for this 48-year-old female. History is given by her sons. She is postictal. Apparently 3 weeks ago, they thought she had a seizure, brought her to the emergency room where she was treated, released, and was not given any medication. Again today, she seemed dazed and confused and had another grand mal seizure. She was brought to the emergency room where she was postictal. CT scan was negative. There is no history of headache, history of focal neurologic signs or symptoms, previous seizures, etc. No history of head injuries or meningitis. REVIEW OF SYSTEMS: Not obtainable. Past medical history, family history personal and social histories are indicative of no allergies. MEDICATIONS: She is on, 1. Chlorthalidone. 2. Amlodipine. 3. Losartan. 4. Ibuprofen. 5. Methocarbamol p.r.n. SOCIAL HISTORY: She does smoke. PHYSICAL EXAMINATION: VITAL SIGNS: Blood pressure 100/76 with a pulse of 82 and regular, respirations of 16. She is afebrile. GENERAL: She appears to be lethargic. EXTREMITIES: She is tremulous in the upper extremities and the head and neck. HEENT: Head, ears, eyes, nose, mouth, throat are normal. Pupils equal round. Gaze is conjugate. NECK: Supple. CHEST: Clear. CARDIAC: Normal. ABDOMEN: Soft and nontender. EXTREMITIES: Normal. NEUROLOGICAL: Her mental status is somewhat obtunded, although she is trying to answer questions and answer appropriately. She is having a little difficulty speaking. She has no lateralizing signs or symptoms on sensory motor exam or cranial nerve exam. IMPRESSION: 1. Grand mal seizure disorder. 2. History of hypertension. PLAN: 1. Bed rest. 2. IV fluids. 3. Seizure precautions. 4. EEG. 5. MRI. 6. Neurology consult. MMODL / IJN: [id number] /
[2024-02-09 09:35] VITALS: RESP 18
[2024-02-09 11:27] VITALS: BP 109/76; PULSE 81; TEMP 98.1
--- NOTE | 2024-02-09 14:44 | P.CNNES ---
History of Present Illness Consult date: 02/09/24 Requesting physician: Riri Tabor Reason for Consult: new onset seizure History of Present Illness: There is a 48-year-old woman who presents the emergency department because of seizure-like activity. Some of the history is obtained from the patient's son was at bedside. According to the son about 2 to 3 weeks ago patient had seizure-like activity in which she was having head shaking and body shaking and lasted for prolonged period of time but during these episodes she was able to track with her eyes as well as move her head [id number]. Then it seems that yesterday she had also further shaking of the head and body that was noticed by her sister. Yesterday she been having stuttering. Denies any history of seizures. Patient is having a lot of stress dealing with the housing issue but the son stated that since she cannot find any housing issue the patient will eventually live with his other brother and she does not have to be concerned. Some of the workup during this hospital visit consisted of: Chemistry Panel seems unremarkable CT head is reported as no acute intracranial process. I personally reviewed the CT and agree with the report. Because of the concern for seizure the patient was given Keppra 1500 mg by the ED team, was given 2 mg of IV Ativan also by the ED team and was started on 1000 mg twice daily of Keppra by the primary physician. Review of Systems The positive and negative as per HPI. Past Medical History Past Medical History: No Reported History, Hypertension Additional Past Medical History / Comment(s): NOS seizure activity. History of Any Multi-Drug Resistant Organisms: None Reported Past Surgical History: Tubal Ligation Past Anesthesia/Blood Transfusion Reactions: No Reported Reaction Past Psychological History: No Psychological Hx Reported Smoking Status: Current every day smoker Past Alcohol Use History: Occasional Past Drug Use History: None Reported - Past Family History Mother Family Medical History: Asthma, Diabetes Mellitus, Hypertension Medications and Allergies Home Medications Medication Instructions Recorded Confirmed Type Cyclobenzaprine [Flexeril] 10 mg PO TID PRN #15 tab 09/19/23 02/08/24 Rx Chlorthalidone [Hygroton] 25 mg PO DAILY 02/08/24 02/08/24 History Ergocalciferol (Vitamin D2) 1,250 mcg PO Q7D 02/08/24 02/08/24 History [Drisdol (50,000 Iu)] HYDROcodone/APAP 5-325MG [[place] 1 tab PO DAILY 02/08/24 02/08/24 History 5-325] Ibuprofen [Motrin] 800 mg PO BID 02/08/24 02/08/24 History Nystatin 100,000 Unit/gm Powd 1 applic TOPICAL BID 02/08/24 02/08/24 History [Mycostatin Powder] Nystatin 100,000Unit/gm Cream 1 applic TOPICAL BID 02/08/24 02/08/24 History [Mycostatin Cream] Semaglutide [Wegovy] 0.25 mg SQ BLOCK 02/08/24 02/08/24 History amLODIPine [Norvasc] 10 mg PO DAILY 02/08/24 02/08/24 History levETIRAcetam [Keppra] 500 mg PO BID #60 tab 02/09/24 Rx Allergies Allergy/AdvReac Type Severity Reaction Status Date / Time Beef Containing Products Allergy Nausea & Verified 02/08/24 13:01 [Beef] Vomiting latex Allergy Rash/Hives Verified 02/08/24 13:01 Pork/Porcine Containing Allergy Rash/Hives Verified 02/08/24 13:01 Products [Pork] Physical Examination - Vital Signs Vital Signs: Vital Signs Temp Pulse Pulse Resp BP BP BP 02/09/24 11:23 98.1 F 81 18 109/76 02/09/24 09:32 97.8 F 84 18 101/67 02/09/24 04:00 98.2 F 83 14 100/65 02/09/24 02:00 98 21 02/09/24 00:00 99.1 F 98 21 109/69 02/08/24 20:56 98.4 F 87 14 109/75 02/08/24 19:47 98.8 F 90 18 111/85 02/08/24 17:21 86 18 102/68 Pulse Ox 02/09/24 11:23 100 02/09/24 09:32 100 02/09/24 04:00 99 02/09/24 02:00 02/09/24 00:00 98 02/08/24 20:56 100 02/08/24 19:47 97 02/08/24 17:21 97 Intake and Output 02/08/24 02/09/24 02/09/24 22:59 06:59 14:59 Intake Total 480 722 Balance 480 722 Intake: IV 10 Invasive Line 1 10 Oral 480 712 Other: Voiding Method Toilet Toilet Toilet # Voids 1 1 Weight 95.254 kg 100.7 kg GENERAL: The patient is lying in bed and is not in acute distress. HENT: Has supple neck. Has inconsistent head tremor. NEUROLOGICAL: Higher mental function: The patient is awake, alert, oriented to self, place and time. Patient is following commands. Has stuttering and is inconsistent and can have full conversation and stuttering resolves. No aphasia and no neglect. Cranial nerves: The pupils are round, equal and reactive to light and accommodation. Visual prabhakar are full to confrontation throughout. Extraocular movement is intact no nystagmus is noted. Facial sensation is normal to touch throughout. The facial strength is normal throughout. Hearing is normal bilaterally to hand rub. Tongue is midline and moved [id number] without any difficulty. No dysarthria is noted. Shoulder shrug is normal bilaterally. Motor: The strength is 5 over 5 throughout. Normal tone and bulk. Cerebellum: Normal finger to nose bilaterally. Sensation: Sensation is normal to touch throughout. Reflexes (right/left): 2+ throughout. Plantars are downgoing bilaterally. Results - Laboratory Findings CBC and BMP: 02/08/24 10:36 07 10:36 Abnormal Lab Findings: Abnormal Labs 02/08/24 07 10:36 10:36 WBC 3.2 L Chloride 112 H Assessment and Plan Assessment: This is a 48-year-old woman who presents because of seizure-like activity yesterday and has been having stuttering since yesterday. She had seizure-like activity in which she has been having head tremor and body shaking according to the son but she is able to track with her eyes and move her head with these episodes. On examination her stuttering is inconsistent as well as the tremor is not consistent and she is able to have normal conversation in between the stuttering. Head and body shaking with stuttering of voice is inconsistent and this seems more functional and not epileptic seizures. Seems more nonepileptic seizure (psychogenic). She is under a lot stress dealing with housing issue. Plan: Primary team has started her on Keppra 1000 mg twice daily. I recommend stopping the Keppra. Routine EEG preliminary read is no seizure or discharges. Recommend patient to follow-up with psychiatrist/therapist as an outpatient Recommend the patient to follow-up with a neurologist as an outpatient within 3 weeks Will defer the rest of the medical management to primary team and other specialist Plan discussed with the patient, her son was at bedside as well as the primary team nurse practitioner. No further neurological workup. Will sign off. Please reconsult if needed Thank you for the consultation Time with Patient: Greater than 30
--- NOTE | 2024-02-09 21:54 | EEG ---
ELECTROENCEPHALOGRAM REPORT CLINICAL HISTORY: This is a 48-year-old woman with body jerk and had tremor and video EEG is obtained to evaluate for seizure epileptiform activity. RELEVANT MEDICATIONS: 1. Keppra. 2. Ativan. EEG TYPE: A routine 21-channel EEG with video using the 10/20 electrode placement system. DESCRIPTION: Wakefulness and drowsiness are obtained. During awake state, the posterior-dominant rhythm consists of [id number] voltage of 8.5 hertz activity that is well modulated and well sustained. There is no physiological stage 2 sleep architecture. There is no focal slowing. There is excessive diffuse beta activity. Interictal and ictal is none. ACTIVATION PROCEDURE: Photic stimulation did not evoke a posterior driving response. There is no abnormality during the photic stimulation. Hyperventilation is not performed. CLINICAL INTERPRETATION: This is an abnormal routine EEG. Background is normal. There is no focal slowing, epileptiform discharge, or seizure on the EEG. The excessive beta activity is likely due to medication-induced (Ativan). A normal routine EEG does not rule out underlying epilepsy. Clinical correlation is recommended. MMODL / IJN: [id number] /
--- NOTE | 2024-02-13 10:04 | P.DS ---
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 Patient will follow-up with Dr. Tai in the outpatient setting upon discharge. Patient is to continue with Keppra 500 mg twice daily and outpatient follow-up with neurology as well as [facility] outpatient . Total time taken is greater than 35 minutes. Hospital course This is a 48-year-old female who was recently admitted with significant head and body shaking with concerns of possible seizure and underwent extensive neurological workup including MRI which is all been negative. 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 Neurology states to continue with the Keppra 500 mg and outpatient follow-up with neurology to discuss weaning Keppra outpatient. Patient will also follow-up with [facility] as well. Patient has been cleared by consultations. Please refer to consultation notes for further HPI. Currently no reports of chest pain, shortness of breath, or palpitations. Patient is afebrile. No reports of nausea or vomiting and patient is tolerating diet. Patient will be discharged home today. Guarded prognosis and high risk for readmissions Physical exam: Gen: This is a 48-year-old female who is awake, alert and oriented x 3, well- developed, well-nourished, obese HEENT: Head is atraumatic, normocephalic. Pupils equal, round. Sclerae is anicteric. NECK: Supple. No JVD. No lymphadenopathy. No thyromegaly. LUNGS: Clear to auscultation. No wheezes or rhonchi. No intercostal retractions. HEART: Regular rate and rhythm. No murmur. ABDOMEN: Soft. Obese. Bowel sounds are present. No masses. No tenderness. EXTREMITIES: No pedal edema. No calf tenderness. NEUROLOGICAL: Patient is awake, alert and oriented x3. Cranial nerves 2 through 12 are grossly intact. Please refer to medication reconciliation sheet for a list of medications. The impression and plan of care has been dictated by Ania Rojas, Nurse Practitioner as directed. Dr. Sunil MD I have performed a history and examination and MDM of this patient, discussed the same with the dictator, and agree with the dictator's assessment and plan as written ,documented as a scribe. Based on total visit time, I have performed more than 50% of the visit. Patient Condition at Discharge: Stable Plan - Discharge Summary Discharge Rx Participant: Yes New Discharge Prescriptions: New levETIRAcetam [Keppra] 500 mg PO BID #60 tab Continue Semaglutide [Wegovy] 0.25 mg SQ BLOCK Nystatin 100,000 Unit/gm Powd [Mycostatin Powder] 1 applic TOPICAL BID Ergocalciferol (Vitamin D2) [Drisdol (50,000 Iu)] 1,250 mcg PO Q7D amLODIPine [Norvasc] 10 mg PO DAILY Chlorthalidone [Hygroton] 25 mg PO DAILY Cyclobenzaprine [Flexeril] 10 mg PO TID PRN #15 tab PRN Reason: Muscle Spasm HYDROcodone/APAP 5-325MG [Garwin 5-325] 1 tab PO DAILY Nystatin 100,000Unit/gm Cream [Mycostatin Cream] 1 applic TOPICAL BID Ibuprofen [Motrin] 800 mg PO BID Discharge Medication List Cyclobenzaprine [Flexeril] 10 mg PO TID PRN #15 tab 09/19/23 [Rx] Chlorthalidone [Hygroton] 25 mg PO DAILY 02/08/24 [History] Ergocalciferol (Vitamin D2) [Drisdol (50,000 Iu)] 1,250 mcg PO Q7D 02/08/24 [History] HYDROcodone/APAP 5-325MG [Garwin 5-325] 1 tab PO DAILY 02/08/24 [History] Ibuprofen [Motrin] 800 mg PO BID 02/08/24 [History] Nystatin 100,000 Unit/gm Powd [Mycostatin Powder] 1 applic TOPICAL BID 02/08/24 [History] Nystatin 100,000Unit/gm Cream [Mycostatin Cream] 1 applic TOPICAL BID 02/08/24 [History] Semaglutide [Wegovy] 0.25 mg SQ BLOCK 02/08/24 [History] amLODIPine [Norvasc] 10 mg PO DAILY 02/08/24 [History] levETIRAcetam [Keppra] 500 mg PO BID #60 tab 02/09/24 [Rx] Follow up Appointment(s)/Referral(s): Star Tai MD [Primary Care Provider] - 1-2 days (please call and make appointment ) Gerardo Whitt DO [STAFF PHYSICIAN] - 1 Week (neurologist [facility]. call and make an appointment with one) Patient Instructions/Handouts: Seizure/Epilepsy Discharge Instructions & Follow-Up, Epilepsy (DC) Activity/Diet/Wound Care/Special Instructions: Activity limited until follow-up Follow-up with primary care provider this week Follow-up with neurology outpatient Discharge Disposition: HOME SELF-CARE
== END 2024-02-09 16:06 | disposition home or self-care (01) ==
LOC: EC 10:11 → 3SCARD 13:45 → INTOOBSV 13:45 → 3SCARD 20:02 → UNDODISIN 02-09 16:06
PROVIDERS: ADMIT Family Medicine; ATTEND Family Medicine
DX: G40.409 Other generalized epilepsy and epileptic syndromes, not intractable, without status epilepticus (principal); I10 Essential (primary) hypertension; F17.200 Nicotine dependence, unspecified, uncomplicated; E66.9 Obesity, unspecified; Z68.39 Body mass index [BMI] 39.0-39.9, adult; Z79.899 Other long term (current) drug therapy; Z91.040 Latex allergy status
CPT/HCPCS: 96374; 96375; 99285; 36415; 95819; 93005; 97162; 97166; 80053; 85025; 85610; 85730; 70450; G0378 ×2; G0480; J2060; J1953; 80320

== ENCOUNTER → 2024-04-18 | Outpatient (CLI) | payer OTHER ==
--- NOTE | 2024-04-18 21:54 | MR ---
EXAMINATION TYPE: MR brain wo con DATE OF EXAM: 04/18/2024 COMPARISON: CT brain 7-24 HISTORY: seizures CONTRAST: Performed utilizing 0 mL intravenous Gadavist gadolinium contrast. TECHNIQUE: Multiplanar, multiecho imaging on a 3.0 Shayy magnet is performed through the brain. Stud y is performed within 24 hours of arrival to the hospital. The craniovertebral junction is normal. The pituitary is normal. Temporal lobes appear symmetrical. Diffusion-weighted imaging is performed. No abnormal hyperintensity is present to suggest an acute i ntracranial infarct or acute ischemic change. There are scattered punctate areas of hyperintensity on T2 and Inversion Recovery weighted sequences which are non-specific but can be related to microvascular ischemic changes. Ventricles and sulci are appropriate for the patient age. IMPRESSION: 1. No acute intracranial process. Follow-up can be performed as clinically indicated.
== END | disposition home or self-care (01) ==
LOC: RADMRIMAIN 18:52
PROVIDERS: ATTEND Psychiatry & Neurology Neurology
DX: R56.9 Unspecified convulsions
CPT/HCPCS: 70551